=== PATIENT | female | born 2000 | race Caucasian/White ===

== ENCOUNTER 2020-09-08 18:06 | Emergency (ER) | payer OTHER, SELFPAY ==
--- NOTE | 2020-09-08 18:07 | ED.GENADUL_ITS ---
Discharge Plan Disposition Patient Disposition: HOME Condition: Stable Discharge Details Clinical Impression: Right flank pain, History of urinary tract infection, Hypokalemia, Second trimester Primary Care Provider: Unknown,Unknown ED Provider: Carmen Christine Home Meds and New Rx's Prescriptions: Continued amoxicillin 500 mg Capsule 500 mg PO BID RF: 0 promethazine 25 mg Suppository 25 mg MS Q6H PRNRF: 0 ondansetron 4 mg Tablet,Disintegrating 4 mg PO Q6H PRNRF: 0 Discharge Instructions Instructions: Hypokalemia (ED), Flank Pain (ED) Additional Instructions: Take antibiotics until finished. You can supplement potassium in your diet with bananas, tomatoes, garlic, spinach. Drink plenty of fluids and get plenty of rest. Take your Zofran that you have at home as needed directed for nausea and vomiting. Follow-up with your [employer] next week in [place]. Return to the emergency department with any worsening or new concerning symptoms. Discharge Data Discharge Physician: Carmen Christine Medical Decision Making 20-year-old female G1, P0 at 16 weeks presents for right flank pain for the past 3 days. She is currently on treatment with amoxicillin for UTI. Heart rate 110s. She is afebrile and appears nontoxic. Bedside ultrasound done which noted normal movement and heart rate. Her abdomen is soft nontender. She has no CVA tenderness. No focal deficits. Neurovascular intact. History and presentation not consistent with kidney stone, appendicitis. Urinalysis obtained and appears negative. Discussed that this could be due to the result of the amoxicillin. Case discussed with Dr. Miller who agreed that if patient is afebrile and appears nontoxic, do not recommend admission for pyelonephritis. Patient would prefer to go home to be with her family as it is [facility]. Labs obtained and note a white blood cell count of 12 which may be reactive in . She also has a potassium of 2.7, will replete with p.o. and IV. After potassium finished, will plan to discharge to home. She is advised to continue her Zofran as needed and directed for her hyperemesis and to finish her amoxicillin. Usual and customary return precautions given prior to discharge. Medical Records Medical records reviewed: Yes I reviewed the patient's medical records. Lab Data Lab results reviewed: Yes I reviewed the patient's lab results. Labs: Laboratory Tests Range/Units 09/08/20 09/08/20 09/08/20 18:13 18:55 18:55 WBC (4.4-10.8) 10^3/uL 12.99 H RBC (3.93-5.22) 10^6/uL 4.55 Hgb (11.2-15.7) g/dL 12.0 Hct (36.0-46.0) % 35.9 L MCV (80-95) fL 78.9 L MCH (27.0-33.0) pg 26.4 L MCHC (32.0-36.0) % 33.4 RDW (11.7-14.6) % 13.9 Plt Count (130-400) 10^3/uL 284 MPV (8.0-11.0) fL 10.6 Immature Gran % 0.3 Neutrophils % 79.0 Lymphocytes % 14.9 Monocytes % 4.8 Eosinophils % 0.8 Basophils % 0.2 Nucleated RBC % % 0 Absolute Neutrophils (1.2-6.7) 10^3/uL 10.26 H Absolute Lymphocytes (1.2-3.4) 10^3/uL 1.94 Absolute Monocytes (0.1-0.8) 10^3/uL 0.62 Absolute Eosinophils (0.0-0.7) 10^3/uL 0.10 Absolute Basophils (0.0-0.2) 10^3/uL 0.03 Sodium (136-145) mmol/L 136 Potassium (3.5-5.1) mmol/L 2.7 L* Chloride (98-107) mmol/L 102 Carbon Dioxide (21.0-32.0) mmol/L 24.3 Anion Gap (3-11) mmol/L 9.7 BUN (7-18) mg/dL 4 L Creatinine (0.55-1.02) mg/dL 0.71 Estimated GFR/1.73 m2 (mL/min/1.73m2) >= 60.00 Glucose (74-106) mg/dL 110 H Calcium (8.5-10.1) mg/dL 9.1 Total Bilirubin (0.2-1.0) mg/dL 0.2 AST (15-37) U/L 15 ALT (14-59) U/L 14 Alkaline Phosphatase (46-116) U/L 78 Total Protein (6.4-8.2) g/dL 7.3 Albumin (3.4-5.0) g/dL 3.4 Urine Color (Yellow) Yellow Urine Clarity (Clear) Clear Urine pH (5-8) 6.0 Ur Specific [place] (1.005-1.025) >= 1.030 H Urine Protein (Negative) mg/dL Negative Urine Ketones (Negative) mg/dL Negative Urine Blood (Negative) Negative Urine Nitrite (Negative) Negative Urine Bilirubin (Negative) Negative Urine Urobilinogen (Up TO 0.2) EU/dL 0.2 Ur Leukocyte Esterase (Negative) Negative Urine Glucose (Negative) mg/dL Negative HPI General Mode of arrival: ambulatory . Date/Time Provider Initiated Documentation: 09/08/20 18:07 . Limitations to Documentation: no limitations . Information obtained by: patient . HPI Narrative: Patient is a 20-year-old female G1, P0 at 16 weeks presents with right flank pain for the past 3 days. She states she has had 3 urinary tract infections during this which have been treated with amoxicillin. She states she had a recent urinalysis at her OB office in [place] and was started on amoxicillin for asymptomatic bacteriuria. She states 3 days ago she developed right lower back pain which is mainly worse with movement. She denies any known injury. She states she called her OB and [place] and they advised her to come here for further evaluation for possible kidney infection or kidney stone. She traveled here from [place] where she lives 2 days ago to be with her family over [place]. She states she traveled by car and was living in a B&B and has no known exposure to sick contacts. Patient denies fevers, nausea, vomiting, abdominal pain, vaginal bleeding, dysuria, hematuria. She states she has hyperemesis gravidarum but has not had any more vomiting than usual. Related Data Home Medications Medication Instructions Recorded Confirmed amoxicillin 500 mg PO BID 09/08/20 09/08/20 ondansetron 4 mg PO Q6H PRN 09/08/20 09/08/20 promethazine 25 mg MS Q6H PRN 09/08/20 09/08/20 Allergies Allergy/AdvReac Type Severity Reaction Status Date / Time No Known Allergies Allergy Unverified 09/08/20 18:26 Review of Systems All systems reviewed & are unremarkable except as noted in HPI and below Constitutional Constitutional: Reports as per HPI, Denies chills and Denies fever(s) Eyes Eyes: Denies blurry vision ENT Ears, Nose, Mouth, and Throat: Denies dizziness, Denies sore throat and Denies throat swelling Cardiovascular Cardiovascular: Denies chest pain and Denies dyspnea Respiratory Respiratory: Denies cough and Denies dyspnea Gastrointestinal Gastrointestinal: Denies abdominal pain, Denies diarrhea and Denies vomiting Genitourinary Genitourinary: Denies hematuria and Denies dysuria Musculoskeletal Musculoskeletal: Reports back pain and Denies numbness Integumentary/Breasts Skin/Breast: Denies lesions and Denies rash Neurologic Neurologic: Denies dizziness, Denies localized weakness and Denies numbness Allergic/Immunologic Allergic/Immunologic: Denies throat swelling [facility] Medical History (Updated 09/08/20 @ 19:46 by Carmen Christine DO) Celiac disease Surgical History (Updated 09/08/20 @ 18:50 by Carmen Christine DO) No significant past surgical history Social History Smoking/Tobacco Use Status: Never Smoking risk assessment performed?: Yes Alcohol Intake: never Substance use type: does not use Current gender identity: female Do you feel safe at home: Yes Do you feel safe in your relationship?: Yes Exam Const General: cooperative, healthy appearing and no acute distress HENMT Head: normal to inspection Face and sinus: normal facial exam Eyes General: appearance normal, both eyes and all related structures EOM: EOM intact bilaterally Neck Neck: normal visual inspection and No submandibular swelling Lymphatic: no lymphadenopathy noted Chest Chest: normal inspection of the chest and no tenderness Resp Effort & Inspection: normal respiratory effort and able to speak in complete sentences Auscultation: clear to auscultation bilaterally Cardio Rate: regular rate Rhythm: regular rhythm GI Inspection: normal to inspection Palpation: soft, not firm, not rigid and nontender Auscultation: normal bowel sounds Back/Spine/Pelvis Back: no CVA tenderness Thoracic/Lumbar Spine: thoracic and lumbar spine normal to inspection Pelvis: no pain with anterior-posterior compression Skin General skin exam: no rashes or lesions noted Neuro General: patient alert, patient awake and patient oriented x3 Cognition: normal cognition Speech: speech normal Motor: muscle tone normal throughout and strength 5/5 throughout Sensory Exam: no sensory deficits noted Extrem General: normal to inspection, full ROM, capillary refill normal, no calf tenderness bilaterally and no edema Other: B/L DP/PT pulses intact. Psych Appearance: grossly normal Mental Status: mental status grossly normal Speech and Movement: speech and movement normal Affect: normal affect
[2020-09-08 18:16] VITALS: BP 132/87; PULSE 110; RESP 16; TEMP 37; O2SAT 99
[2020-09-08 18:45] LABS: Bilirubin Negative (Negative); Blood Negative (Negative); Clarity Clear (Clear); Glucose Negative (Negative); Ketones Negative (Negative); Leukocyte Esterase Negative (Negative); Nitrite Negative (Negative); Specific Gravity >= 1.030 (1.005-1.025); Urobilinogen 0.2 EU/dL (Up TO 0.2)
[2020-09-08 19:01] LABS: Abs Immature Grans 0.04 10^3/uL (0.0-0.06); Absolute Basophil Count 0.03 10^3/uL (0.0-0.2); Absolute Lymphocyte Count 1.94 10^3/uL (1.2-3.4); Absolute Monocyte Count 0.62 10^3/uL (0.1-0.8); Absolute Neutrophil Count 10.26 10^3/uL (1.2-6.7); Basophils % 0.2; Eosinophils % 0.8; HCT 35.9 % (36.0-46.0); Immature Grans % 0.3; Lymphocytes % 14.9; MCH 26.4 pg (27.0-33.0); MCHC 33.4 % (32.0-36.0); MCV 78.9 fL (80-95); MPV 10.6 fL (8.0-11.0); Monocytes % 4.8; Nucleated RBC 0 %; Platelet Count 284 10^3/uL (130-400); RBC 4.55 10^6/uL (3.93-5.22); RDW 13.9 % (11.7-14.6); RDW-SD 39.6 fL; WBC 12.99 10^3/uL (4.4-10.8)
[2020-09-08 19:15] LABS: ALT 14 U/L (14-59); AST 15 U/L (15-37); Albumin 3.4 g/dL (3.4-5.0); Alkaline Phosphatase 78 U/L (46-116); Anion Gap 9.7 mmol/L (3-11); BUN 4 mg/dL (7-18); Bilirubin, Total 0.2 mg/dL (0.2-1.0); CO2 24.3 mmol/L (21.0-32.0); CREATININE 0.71 mg/dL (0.55-1.02); Calcium 9.1 mg/dL (8.5-10.1); Chloride 102 mmol/L (98-107); Glucose 110 mg/dL (74-106); Sodium 136 mmol/L (136-145); Total Protein 7.3 g/dL (6.4-8.2)
[2020-09-08 19:27] LABS: Potassium 2.7 mmol/L (3.5-5.1)
[2020-09-08] MEDS: Normal Saline 1,000 ML 1000 ML IV (20:08)
[2020-09-08] MEDS: Potassium Chloride 20 MEQ TABCR 40 MEQ PO (20:08)
[2020-09-08] MEDS: POTASSIUM CHLORIDE 20 MEQ/100 ML BAG 50 MEQ IVPB (20:09)
[2020-09-08 21:31] VITALS: BP 96/56; PULSE 70; RESP 18; TEMP 36.6; O2SAT 99
== END 2020-09-08 21:38 | disposition home or self-care (01) ==
PROVIDERS: Emergency Provider Physician Assistant
DX: O26.892 Other specified pregnancy related conditions, second trimester (principal); O99.282 Endocrine, nutritional and metabolic diseases complicating pregnancy, second trimester; O23.42 Unspecified infection of urinary tract in pregnancy, second trimester; Z3A.16 16 weeks gestation of pregnancy; Z87.440 Personal history of urinary (tract) infections
CPT/HCPCS: 36415; 80053; 96361; 96365; 96366; 99284; 81003; 85025; 99283; J3480